=== PATIENT | female | born 1940 | race Caucasian/White ===

== ENCOUNTER → 2017-07-19 | Outpatient (CLI) | payer MEDICARE ==
--- NOTE | 2017-07-19 10:49 | US ---
EXAMINATION TYPE: US extremity nonvasc mass LT DATE OF EXAM: 07/19/2017 COMPARISON: NONE CLINICAL HISTORY: N83.7 Hematoma of Broad Ligament. Left lateral lower arm palpable area 2 weeks Left lower arm palpable area: 2.1 x 0.7 x 1.7cm superficial hypoechoic complex area with minimal vasc ularity and small focal hyperechoic area within measuring 0.7 x 0.4 x 0.9cm. Right arm for comparison: appears wnl IMPRESSION: 2.1 x 1.7 cm hypoechoic complex area overlying the palpable abnormality. Couldn't been t he basis of a hematoma, phlegmon or abscess. Neoplasm not excluded. Correlate clinically and follow-u p to resolution or obtain MRI on short-term basis.
== END | disposition home or self-care (01) ==
LOC: RADUSMAIN 10:01
PROVIDERS: ATTEND Internal Medicine Geriatric Medicine
DX: N83.7 Hematoma of broad ligament (principal)

== ENCOUNTER → 2021-07-22 | Outpatient (CLI) | payer MEDICARE ==
[2021-07-22 08:03] LABS: INR 0.9 (<1.2); Partial Thromboplastin Time 25.4 sec (22.0-30.0); Prothrombin Time 10.4 sec (9.0-12.0)
[2021-07-22 13:08] LABS: HCT 38.3 % (37.2-46.3); MCH 26.3 pg (27.0-32.0); MCHC 31.3 g/dL (32.0-37.0); Mean Platelet Volume 11.3 fL (9.5-12.2); NRBC Per 100 WBC 0 /100 WBCS (0.0-0.0); Platelet Count 302 X 10*3/uL (140-440); RBC 4.56 X 10*6/uL (4.10-5.20); RDW 15.5 % (11.5-14.5); WBC 7.42 X 10*3/uL (4.50-10.00)
[2021-07-22 13:28] LABS: African American GFR (CKD) 72.4 (60.0-200.0); Albumin 4.6 g/dL (3.8-4.9); Albumin/Globulin Ratio 1.68 (1.60-3.17); Anion Gap 15.3 mmol/L (10.00-18.00); BUN/Creat Ratio 20.45 Ratio (12.00-20.00); Blood Urea Nitrogen 18.1 mg/dL (9.0-27.0); Carbon Dioxide 26.7 mmol/L (20.0-27.5); Globulin 2.7 g/dL (1.6-3.3); Non-African American GFR(CKD) 62.5 (60.0-200.0); Potassium 3.3 mmol/L (3.5-5.5); Total Bilirubin 0.3 mg/dL (0.30-1.20); Total Protein 7.3 g/dL (6.2-8.2)
[2021-07-22 13:51] LABS: Appearance,Urine Cloudy (Clear); Bacteria,Urine 4+ /HPF (None Seen); Bilirubin,Urine Negative (Negative); Blood,Urine Trace (Negative); Color,Urine Yellow (Yellow); Ketones,Urine Trace mg/dL (Negative); Leukocyte Esterase,Urine Moderate (Negative); Nitrite,Urine Negative (Negative); Protein,Urine Trace (Negative); WBC,Urine 21-50 /HPF (0-5)
== END | disposition home or self-care (01) ==
LOC: LABPAT 07:01
PROVIDERS: ATTEND Orthopaedic Surgery
DX: Z01.812 Encounter for preprocedural laboratory examination (principal)
CPT/HCPCS: 36415; 80053; 81001; 85027; 85610; 85730; 87070

== ENCOUNTER 2021-08-03 07:38 | Day surgery (SDC) | payer MEDICARE ==
[2021-07-30 09:03] VITALS: BMI 30.3
[~2021-08-03 07:38] MED LIST: ACETAMINOPHEN TAB 500 MG TAB PO PRN; GABAPENTIN 300 MG CAP PO PRN; LIDOCAINE 1% (10MG/ML) FOR IV START INTRADERMA PRN; MELOXICAM 7.5 MG TAB PO PRN; ONDANSETRON 4 MG/2 ML VIAL IVP ONE; TRANEXAMIC ACID IN NACL,ISO-OS 1,000 MG in SALINE 1 100ML.BAG IVPB PRN
[2021-08-03] MEDS: LACTATED RINGERS 1,000 ML IV SCH (08:27)
[2021-08-03] MEDS ORDERED: DEXAMETHASONE SOD PHOSPHATE 4 MG/ML 1 ML VIAL IVP ONE (08:28)
[2021-08-03] MEDS ORDERED: fentaNYL (PF) 50 MCG/ML 2 ML AMP ONE (08:51)
[2021-08-03] MEDS ORDERED: LIDOCAINE 1% INJ 10MG/ML (20 ML MDV) ONE (08:51)
[2021-08-03] MEDS ORDERED: TRANEXAMIC ACID IN NACL,ISO-OS 1,000 MG/100 ML BAG ONE (08:51)
[2021-08-03] MEDS ORDERED: SUCCINYLCHOLINE CHLORIDE 100 MG/5 ML SYR IV ONE (08:51)
[2021-08-03] MEDS ORDERED: PROPOFOL 10 MG/ML 20 ML VIAL IV ONE (08:51)
[2021-08-03] MEDS ORDERED: ceFAZolin 1,000 MG in SODIUM CHLORIDE 0.9% 1,000 ML IRRIGATION ONE (08:54)
[2021-08-03] MEDS ORDERED: HYDROmorphone 0.5 MG/0.5 ML SYRINGE IVP PRN ×2 (08:55)
[2021-08-03] MEDS ORDERED: ONDANSETRON 4 MG/2 ML VIAL IVP PRN (08:55)
[2021-08-03] MEDS ORDERED: NALOXONE 0.4 MG/ML 1 ML VIAL IV PRN (08:55)
[2021-08-03] MEDS ORDERED: MAGNESIUM HYDROXIDE 2,400 MG/10 ML CUP PO PRN (08:55)
[2021-08-03] MEDS ORDERED: HYDROmorphone 0.2 MG/1 ML SYRINGE IVP PRN (08:55)
[2021-08-03] MEDS ORDERED: HYDROcodone/APAP 7.5-325MG 1 EACH TAB PO PRN ×2 (08:56)
[2021-08-03] MEDS ORDERED: ROPIVACAINE 5 MG/ML 30 ML VIAL MISCELLANE ONE ×2 (09:21→09:50)
--- NOTE | 2021-08-03 10:02 | P.OP ---
Date of Procedure: 08/03/21 Preoperative Diagnosis: Severe osteoarthritis right hip Postoperative Diagnosis: Severe osteoarthritis right hip Procedure(s) Performed: Right total hip arthroplasty with a direct anterior approach Implants: Sal [employer] Nephew Polarstem standard size 0 with a collar Sal [employer] Nephew R3, 3 hole hemispherical acetabular shell, 48 mm Sal [employer] Nephew Reflection 6.5 mm cancellus screw, 20 mm 2 Sal [employer] Nephew R3, XLPE 20 acetabular liner Sal & Nephew Oxinium femoral head 32 m, +0 All components were press-fit. The articulation is Oxinium on polyethylene. Anesthesia: GETA Surgeon: Kwesi Lim Carpenter Repairer #1: Michelle Murray Estimated Blood Loss (ml): 200 Pathology: other (Femoral head) Condition: stable Disposition: PACU Indications for Procedure: After failure of conservative treatment we discussed the surgical and nonsurgical treatment options at length. Patient wishes to proceed with a total hip arthroplasty with a direct anterior approach. Complications specific to this procedure were discussed at length, including but not limited to infection, leg length discrepancy, dislocation, nerve injury, and fracture. Covid-19 was also discussed at length with the patient, and they are aware of the current po licies and procedures. The patient was given the option of delaying surgery, but they elect to proceed knowing these risks. Patient is aware of all these complications and informed consent was obtained Operative Findings: The operative findings are consistent with severe osteoarthritis of the right hip Description of Procedure: Patient was seen and evaluated in the preoperative area and the consent was reviewed. The operative site was marked with a skin marker. The patient was then brought to the operating room and given preoperative antibiotics intravenously. 1 g of Tranexamic acid was also given intravenously. A general anesthetic was administered by the anesthesia department. The patient was then placed on the [place] table with the bony prominences well-padded. The hip area was then prepped with a ChloraPrep solution and draped in the usual sterile fashion. A universal timeout was then performed, which confirmed the patient's name, surgical site, ALLERGIES, and procedure being performed on the consent. Next the incision site was located at 1 cm distal and 2 cm lateral to the anterior superior iliac spine. The skin and subcutaneous tissues were sharply incised. Incision was carefully dissected down to the fascia overlying the tensor fascia ronen muscle. This fascia was then incised in line with the incision. Care was taken to stay laterally in order to avoid injuring the lateral femoral cutaneous nerve. Next, using blunt finger dissection, the tensor fascia ronen muscle was dissected off its investing fascia. The muscle was then carefully retracted laterally with a cobra retractor over the lateral neck of the femur. Next, the circumflex vessels were identified and cauterized using the AquaMantis device. The anterior hip capsule was then exposed. The capsule was then opened and an inverted T fashion. Cobra retractors were then placed intracapsularly. The retractors were maintained intracapsular throughout the procedure. The proximal femur was then visualized. Fluoroscopic x-rays were then taken in order to evaluate the preoperative leg lengths. A small amount of traction was placed on the leg. The femoral neck was then osteotomized at the appropriate level above the lesser trochanter. A small wedge of bone was then removed from the remaining femoral head. Next, using a corkscrew the femoral head was removed from the acetabulum. On gross visual inspection, the femoral head had complete loss of articular cartilage and multiple periarticular osteophytes. The femoral head was then measured. Attention was then turned to the acetabulum. The acetabulum was exposed and any remaining labrum was excised. Sequential reaming of the acetabulum was performed using fluoroscopic guidance until there was a good bed of bleeding cancellus bone. When the appropriate size was reached, a trial was then placed. The position and fit of the trial was checked with fluoroscopy. The trial was then removed. Then, using fluoroscopic guidance, the final implant was impacted at 20 of anteversion and 40 of abduction, and fully seated in the acetabulum. 2 screws were then placed in the acetabulum. Again fluoroscopy was used to check position of the screws. Next, the liner was then impacted, with a 20 elevated liner located in the anterior superior quadrant. Component locking was confirmed. Attention was then directed to the femur. With the aid of the [place] table, the femur was externally rotated to approximately 130, extended, and adducted under the opposite leg. A side hook was then placed under the proximal femur, and the side hook elevator was used to elevate the proximal femur while releasing the capsule. Retractors were then placed. A capsular release was performed, as well as a release of the conjoined tendon, which afforded excellent visualization of the proximal femur. Next, a box osteotome was used to lateralize the proximal femur. A merchandise marker was then used to locate the femoral canal. Sequential broaching was then performed with appropriate size which afforded excellent fixation in the proximal femur. A trial was then placed with appropriate head and neck, and the hip was gently reduced with the aid of the [place] table. Fluoroscopy was then used to check position of the components, as well as to ensure equal leg lengths. The hip was then gently dislocated and the trials were then removed. Final implants were then impacted and the hip was again reduced. Final fluoroscopic x-rays confirmed that the components were in anatomic position, as well as equal leg lengths. The hip was also taken through range of motion, and found to be stable. The hip was then copiously irrigated with antibiotic solution with pulsatile lavage. The hip was then irrigated with Irrisept solution. The soft tissues were then injected with a ropivacaine solution. A second dose of 1 g of Tranexamic acid was also given intravenously. The fascia was then closed with 2-0 strata fix suture. The subcutaneous tissue was closed with 3-0 Vicryl. The subcuticular tissue was closed with 3-0 strata fix suture. The skin was then closed with Exofin skin glue. After the glue and dried, and Optifoam silver impregnated dressing was applied. The patient was then transferred to the recovery room in stable condition. The news production assistant THERESA Mirza was required due to the complexity of surgery, and the need for skilled surgical instrument maker for positioning, draping, exposure, retraction, and closure of the wound.
[2021-08-03] MEDS: HYDROmorphone 0.5 MG/0.5 ML SYRINGE IVP PRN ×2 (10:32→11:06)
--- NOTE | 2021-08-03 11:22 | XR ---
Limited right hip HISTORY: Status post right hip arthroplasty Single frontal view of the right hip Patient is status post right hip arthroplasty, there is anatomic alignment. Lucencies present within the soft tissues. IMPRESSION: Orthopedic follow-up
--- NOTE | 2021-08-03 11:29 | XR ---
Fluoroscopy HISTORY: Anterior hip replacement 22 seconds fluoroscopy time supplied to the referring clinician. 3 intraoperative C-arm images docum ent the procedure. See dictated report from orthopedic surgery.
[2021-08-03] MEDS: SODIUM CHLORIDE 0.9% 1,000 ML IV SCH (12:07)
[2021-08-03] MEDS ORDERED: NON FORMULARY DRUG (Brimonidine Tartrate/Timolol [Combigan 0.2%-0.5% Eye Drops] 5 ML Ml) BOTH EYES SCH (12:30)
[2021-08-03] MEDS: CALCIUM CARBONATE 500 MG CHEWABLE PO SCH (13:17)
--- NOTE | 2021-08-03 14:08 | P.CONS ---
History of Present Illness - Reason for Consult Consult date: 08/03/21 - Chief Complaint Right hip pain - History of Present Illness 81 years old female with past medical history of hyperlipidemia, hypertension, glaucoma comes in for an elective right hip arthroplasty with Dr. Lim. Patient assessed postoperatively, denies any pain in her hip is able to mobilize her hip without any significant pain and stiffness. She is drowsy but is able to provide most of the history. Denies any chest pain or shortness of breath. Patient denies any previous history of heart disease. Vitals were reviewed the patient's afebrile pulse 63 respiratory rate 18 blood pressure 106/57 oxygenating at 92% on room air. No recent labs to compare ROS Constitutional: Denies chills, Denies fever, Denies lethargy, Denies malaise, Denies poor appetite, Denies weakness, Denies weight loss Eyes: denies decreased vision, denies diplopia, denies discharge, denies pain Ears: deny: decreased hearing Ears, nose, mouth and throat: Denies dental pain, Denies headache, Denies nasal discharge, Denies nose pain Cardiovascular: Denies chest pain, Denies decreased exercise tolerance, Denies edema, Denies high blood pressure, Denies irregular heart beat, Denies palpitations, Denies paroxysmal nocturnal dyspnea, Denies rapid heart beat, Denies shortness of breath Respiratory: Denies congestion, Denies cough, Denies cough with sputum, Denies dyspnea, Denies home oxygen, Denies wheezing Gastrointestinal: Denies abdominal pain, Denies change in bowel habits, Denies coffee ground emesis, Denies early satiety, Denies excessive gas, Denies heartburn, Denies hematemesis, Denies hematochezia, Denies loss of appetite, Denies nausea, Denies vomiting Genitourinary: Denies dysuria, Denies flank pain, Denies kidney stones, Denies menorrhagia, Denies urgency, Denies urinary frequency Musculoskeletal: endorses gait dysfunction, endorses limitation of motion, mild hip pain Denies morning stiffness, Denies muscle cramps Integumentary: Denies rash, Denies wounds, Denies brittle nails, Denies change in hair/nails, Denies darkening of skin Neurological: Denies balance difficulties, Denies change in speech, Denies double vision, Denies gait dysfunction, Denies loss of vision, Denies motor disturbance, Denies numbness, Denies paralysis, Denies paresthesias, Denies seizures Psychiatric: Denies anxiety, Denies depression Endocrine: Denies excessive sweating, Denies excessive thirst, Denies high blood sugars, Denies palpitations Hematologic/Lymphatic: Denies easy bruising, Denies lymphadenopathy Social history Nonsmoker nondrinker Family history Mother at 95 from old age Father of colon cancer at age of 75 3 brother and 2 sisters with no medical problem Son has diabetes, daughter gallstones no other significant medical history Physical exam - Constitutional General appearance: cooperative, no acute distress, appears stated age - EENT Eyes: anicteric sclerae, PERRLA, normal appearance ENT: hearing grossly normal - Neck Neck: no lymphadenopathy, normal ROM, no other, no rigidity, no stridor, no thyromegaly - Respiratory Respiratory: bilateral: CTA, negative: diminished, dullness, rales, rhonchi - Cardiovascular Rhythm: regular Heart sounds: normal: S1, S2 Abnormal Heart Sounds: 3/5 systolic murmur, no diastolic murmur, no rub, no S3 Gallop, no S4 Gallop, no click, no other - Gastrointestinal General gastrointestinal: normal bowel sounds, soft nontender - Integumentary Integumentary: no rash - Neurologic Neurologic: No sensory or motor deficit - Musculoskeletal Musculoskeletal: Surgical dressing in place no bruising no inflammation. No sign of infection noted - Psychiatric Psychiatric: A&O x's 3, appropriate affect Assessment and plan #1 Postoperative day 0 right hip arthroplasty anterior approach with Dr. Lim. Pain control per primary team. DVT prophylaxis with aspirin 325 by mouth twice a day. Incentive spirometry for pulmonary prophylaxis watch for aspiration. Watch for postoperative anemia. PTOT consult . #2 Hypertension hold hydrochlorothiazide. Continue Procardia at 60 by mouth daily #3 Hyperlipidemia continue Zocor at 40 mg by mouth daily #4.Glaucoma Continue brimonidine eyedrops from home #5 code status full code thank you for the consult and I'll be happy to assist in patient's medical nevi and she is in the hospital Past Medical History Past Medical History: Hyperlipidemia, Hypertension, Osteoarthritis (OA) History of Any Multi-Drug Resistant Organisms: None Reported Past Surgical History: Adenoidectomy, Back Surgery, Section, Joint Replacement, Tonsillectomy Additional Past Surgical History / Comment(s): back surgery x 3-screws, rods(rods later removed), jenn cataracts, total right hip anterior 08/03/21 Past Anesthesia/Blood Transfusion Reactions: No Reported Reaction Past Psychological History: No Psychological Hx Reported Smoking Status: Former smoker Past Alcohol Use History: Rare Additional Past Alcohol Use History / Comment(s): quit smoking 33 yrs ago, smoked for 20 yrs Past Drug Use History: None Reported - Past Family History Father Family Medical History: Cancer Medications and Allergies Home Medications Medication Instructions Recorded Confirmed Type Aspirin [[place] Aspirin EC] 81 mg PO HS 07/30/21 08/03/21 History Bimatoprost [Lum[place] .01% Ophth 1 drop BOTH EYES HS 07/30/21 08/03/21 History Soln] Brimonidine Tartrate/Timolol 1 drop BOTH EYES BID 07/30/21 08/03/21 History [Combigan 0.2%-0.5% Eye Drops] Calcium Carbonate [Calcium] 1,200 mg PO DAILY 07/30/21 08/03/21 History Loratadine-Pseudoeph 10-240 mg 1 tab PO DAILY 07/30/21 08/03/21 History [Claritin-D 24 Hour] NIFEdipine XL [Procardia XL] 60 mg PO DAILY 07/30/21 08/03/21 History Potassium Gluconate [Potassium 99 mg PO DAILY 07/30/21 08/03/21 History Gluconate ER] Psyllium Husk (with Sugar) 0 gm PO DAILY 07/30/21 08/03/21 History [Metamucil Powder] Simvastatin [Zocor] 40 mg PO DAILY 07/30/21 08/03/21 History hydroCHLOROthiazide [Hydrodiuril] 25 mg PO HS 07/30/21 08/03/21 History Aspirin 325 mg PO BID #60 tab 08/03/21 Rx HYDROcodone/APAP 7.5-325MG [[place] 1 - 2 tab PO Q6H PRN #32 tab 08/03/21 Rx 7.5-325] Ondansetron Odt [Zofran Odt] 1 tab PO Q8HR PRN #10 tab 08/03/21 Rx Sennosides [Senokot] 2 tab PO DAILY PRN #60 tablet 08/03/21 Rx Allergies Allergy/AdvReac Type Severity Reaction Status Date / Time acetaminophen [From Vicodin] Allergy Nausea & Verified 08/03/21 08:34 Vomiting & Diarrhea hydrocodone [From Vicodin] Allergy Nausea & Verified 08/03/21 08:34 Vomiting & Diarrhea Physical Exam Vitals: Vital Signs Temp Pulse Pulse Resp BP Pulse Ox 08/03/21 11:16 63 18 106/57 92 L 08/03/21 11:13 66 18 106/55 99 08/03/21 11:01 68 18 104/55 99 08/03/21 10:46 70 18 108/58 100 08/03/21 10:31 77 18 113/55 100 08/03/21 10:23 97 F L 86 16 115/59 100 08/03/21 08:04 97.5 F L 64 18 130/66 97 Intake and Output 08/02/21 08/03/21 08/03/21 22:59 06:59 14:59 Intake Total 951 Output Total 200 Balance 751 Intake: IV 951 Output: Estimated Blood Loss 200 Other: Weight 66.7 kg Results CBC & Chem 7: 08/03/21 08:10
[2021-08-03] MEDS ORDERED: LATANOPROST 0.005% OPHTH DROPS 2.5 ML BTL BOTH EYES SCH (21:00)
[2021-08-03] MEDS ORDERED: SENNOSIDES-DOCUSATE SODIUM 1 EACH TAB PO SCH (21:00)
[2021-08-03] MEDS: ASPIRIN 325 MG TAB PO SCH (21:27)
[2021-08-03] MEDS: TIMOLOL 0.5% OPHTH DROPS 5 ML BTL BOTH EYES SCH (21:28)
[2021-08-03] MEDS: BRIMONIDINE TARTRATE 0.2% DROPS 5 ML BTL BOTH EYES SCH (21:28)
[2021-08-04] MEDS: SODIUM CHLORIDE 0.9% 1,000 ML IV SCH ×2 (00:37→10:00)
[2021-08-04] MEDS: LACTATED RINGERS 1,000 ML IV SCH (06:49)
[2021-08-04 07:49] VITALS: RESP 14
[2021-08-04 08:56] LABS: Basophils # (A) 0.01 X 10*3/uL (0.00-0.10); Basophils % (A) 0.1 %; Eosinophils # (A) 0.01 X 10*3/uL (0.04-0.35); Eosinophils % (A) 0.1 %; HCT 31.8 % (37.2-46.3); HGB 10.1 g/dL (12.0-15.0); Immature Grans, Automated 0.4 %; Lymphocytes # (A) 1.19 X 10*3/uL (0.90-5.00); MCH 26.6 pg (27.0-32.0); MCHC 31.8 g/dL (32.0-37.0); MCV 83.9 fL (80.0-97.0); Mean Platelet Volume 11.2 fL (9.5-12.2); Monocytes # (A) 1.02 X 10*3/uL (0.20-1.00); Monocytes % (A) 10.3 %; NRBC Per 100 WBC 0 /100 WBCS (0.0-0.0); Neutrophils # (A) 7.66 X 10*3/uL (1.80-7.70); Neutrophils % (A) 77.1 %; Platelet Count 222 X 10*3/uL (140-440); RBC 3.79 X 10*6/uL (4.10-5.20); RDW 15.6 % (11.5-14.5); WBC 9.93 X 10*3/uL (4.50-10.00)
[2021-08-04] MEDS ORDERED: LORATADINE-PSEUDOEPH 5-120 MG 1 EACH TAB.ER.12H PO SCH (09:00)
[2021-08-04] MEDS ORDERED: NON FORMULARY DRUG (Potassium Gluconate [Potassium Gluconate Er] 99 MG Tablet) PO SCH (09:00)
[2021-08-04] MEDS ORDERED: ATORVASTATIN 20 MG TAB PO SCH (09:00)
--- NOTE | 2021-08-04 09:02 | P.DS ---
Providers Expected date of discharge: 08/04/21 Attending physician: Kwesi Lim Consults: 08/03/21 08:55 Consult Physician Routine Consulting Provider: Rishabh Hendrickson Reason/Comments: medical management Do you want consulting provider notified?: Yes Primary care physician: Rishabh Hendrickson - Discharge Diagnosis(es) (1) Osteoarthritis of right hip Current Visit: Yes Status: Acute (2) S/P total right hip arthroplasty Current Visit: Yes Status: Acute Hospital Course: This is a 81-year-old female with known history of degenerative arthritis of the right hip. The patient presented for evaluation as an outpatient. After discussion and consideration patient elects to proceed with total hip arthroplasty. The patient is seen preoperatively by Dr. Lim and medically cleared for surgery by their primary care physician. Patient is admitted to [facility] on 08/03/2021 for total hip arthroplasty. The procedure is performed without complication or sequelae. The patient is doing well postoperatively. Labs and vital signs are stable on day of discharge. On day of discharge patient's hip incision is healing well. There is minimal erythema. There is no drainage noted at this time. There is minimal soft t issue swelling to the hip and thigh. Patient has full foot and ankle motion without difficulty or pain. Calf is soft and nontender to palpation. Neurovascular status to the right lower extremity is intact. Patient is discharged home in good condition. Please see med rec for accurate list of home medications. Plan - Discharge Summary Discharge Rx Participant: No New Discharge Prescriptions: New Sennosides [Senokot] 2 tab PO DAILY PRN #60 tablet PRN Reason: Constipation Ondansetron Odt [Zofran Odt] 1 tab PO Q8HR PRN #10 tab PRN Reason: Nausea Aspirin 325 mg PO BID #60 tab HYDROcodone/APAP 7.5-325MG [[place] 7.5-325] 1 - 2 tab PO Q6H PRN #32 tab PRN Reason: Pain No Action Simvastatin [Zocor] 40 mg PO DAILY Aspirin [[place] Aspirin EC] 81 mg PO HS hydroCHLOROthiazide [Hydrodiuril] 25 mg PO HS Bimatoprost [[place]um[place] .01% Ophth Soln] 1 drop BOTH EYES HS Loratadine-Pseudoeph 10-240 mg [Claritin-D 24 Hour] 1 tab PO DAILY Brimonidine Tartrate/Timolol [Combigan 0.2%-0.5% Eye Drops] 1 drop BOTH EYES BID NIFEdipine XL [Procardia XL] 60 mg PO DAILY Potassium Gluconate [Potassium Gluconate ER] 99 mg PO DAILY Calcium Carbonate [Calcium] 1,200 mg PO DAILY Psyllium Husk (with Sugar) [Metamucil Powder] 0 gm PO DAILY Discharge Medication List Aspirin [[place] Aspirin EC] 81 mg PO HS 07/30/21 [History] Bimatoprost [[place]um[place] .01% Ophth Soln] 1 drop BOTH EYES HS 07/30/21 [History] Brimonidine Tartrate/Timolol [[place] 0.2%-0.5% Eye Drops] 1 drop BOTH EYES BID 07/30/21 [History] Calcium Carbonate [Calcium] 1,200 mg PO DAILY 07/30/21 [History] Loratadine-Pseudoeph 10-240 mg [Claritin-D 24 Hour] 1 tab PO DAILY 07/30/21 [History] NIFEdipine XL [Procardia XL] 60 mg PO DAILY 07/30/21 [History] Potassium Gluconate [Potassium Gluconate ER] 99 mg PO DAILY 07/30/21 [History] Psyllium Husk (with Sugar) [Metamucil Powder] 0 gm PO DAILY 07/30/21 [History] Simvastatin [Zocor] 40 mg PO DAILY 07/30/21 [History] hydroCHLOROthiazide [Hydrodiuril] 25 mg PO HS 07/30/21 [History] Aspirin 325 mg PO BID #60 tab 08/03/21 [Rx] HYDROcodone/APAP 7.5-325MG [[place] 7.5-325] 1 - 2 tab PO Q6H PRN #32 tab 08/03/21 [Rx] Ondansetron Odt [Zofran Odt] 1 tab PO Q8HR PRN #10 tab 08/03/21 [Rx] Sennosides [Senokot] 2 tab PO DAILY PRN #60 tablet 08/03/21 [Rx] Follow up Appointment(s)/Referral(s): [facility], [NON-STAFF] - ([facility] will call you to schedule your in home physical therapy visits. ) Kwesi Lim DO [Doctor of Osteopathic Medicine] - 08/17/21 9:00 am (With Michelle) Activity/Diet/Wound Care/Special Instructions: Weightbearing as tolerated with walker. Leave dressing intact. Dressing may be removed by home care nurse or by patient in 7 days. Then change dressing twice daily until follow up. May shower with initial dressing intact and after removal. If dressing become saturated, please remove. Please take aspirin 325mg twice daily for 30 days to prevent blood clots. Recommend use of compression stockings daily until follow up to help prevent swelling and blood clots. May remove at night before sleeping. Please follow-up with [facility] in 2 weeks and call with any questions or concerns, . Discharge Disposition: HOME WITH HOME HEALTH SERVICES
[2021-08-04 09:55] VITALS: BP 132/63; PULSE 92; TEMP 98.5
[2021-08-04] MEDS: BRIMONIDINE TARTRATE 0.2% DROPS 5 ML BTL BOTH EYES SCH (09:58)
[2021-08-04] MEDS: TIMOLOL 0.5% OPHTH DROPS 5 ML BTL BOTH EYES SCH (09:58)
[2021-08-04] MEDS: CALCIUM CARBONATE 500 MG CHEWABLE PO SCH (10:00)
[2021-08-04] MEDS: ASPIRIN 325 MG TAB PO SCH (10:01)
== END 2021-08-04 11:38 | disposition home health service (06) ==
LOC: OR 07:38 → 4SSUR 10:23 → OR 08-04 11:38
PROVIDERS: ATTEND Orthopaedic Surgery
DX: M16.11 Unilateral primary osteoarthritis, right hip (principal)
CPT/HCPCS: 27130; 97161; 97530; 97535; 97165; 86900; 86901; 84132; 85025; 86850; 88300; 73501; C1776; J1100; J0690 ×3; J2405; J2001; J3010; J2795; J0330; J2704; J1170

== ENCOUNTER → 2022-01-26 | Outpatient (CLI) | payer MEDICARE ==
--- NOTE | 2022-01-29 07:32 | US ---
EXAMINATION TYPE: US extremity nonvasc mass LT DATE OF EXAM: 01/27/2022 COMPARISON: NONE CLINICAL HISTORY: R22.32 SWELLIN, MASS LUMP LT UPPER LIMB. left upper arm/shoulder palpable lump for many years Palpable mass seen left upper arm/shoulder area = 8.9 x 3.4 x 5.5cm IMPRESSION: Probable lipoma however this can be confirmed with MRI.
== END | disposition home or self-care (01) ==
LOC: RADUSWWP 21:54
PROVIDERS: ATTEND Surgery Plastic and Reconstructive Surgery
DX: R22.32 Localized swelling, mass and lump, left upper limb (principal)

== ENCOUNTER 2022-03-12 06:15 | Day surgery (SDC) | payer MEDICARE ==
[~2022-03-12 06:15] MED LIST changes: -ACETAMINOPHEN TAB 500 MG TAB PO PRN; +DEXAMETHASONE SOD PHOSPHATE 4 MG/ML 1 ML VIAL IV ONE; -GABAPENTIN 300 MG CAP PO PRN; +HEPARIN SODIUM,PORCINE/PF 5,000 UNIT/0.5 ML SYRINGE SQ PRN; +LACTATED RINGERS 1,000 ML IV SCH; -LIDOCAINE 1% (10MG/ML) FOR IV START INTRADERMA PRN; -MELOXICAM 7.5 MG TAB PO PRN; +MIDAZOLAM 2 MG/2 ML VIAL IV PRN; +Pre Op ABX Message 1 EACH MISC MISCELLANE ONE; -TRANEXAMIC ACID IN NACL,ISO-OS 1,000 MG in SALINE 1 100ML.BAG IVPB PRN
[2022-03-12] MEDS ORDERED: ACETAMINOPHEN TAB 500 MG TAB PO STA (06:38)
--- NOTE | 2022-03-12 06:38 | P.GSHP ---
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 She now who presents for definitive excision. PAST MEDICAL HISTORY: Please see list. PAST SURGICAL HISTORY: Please see list. MEDICATIONS: Please see list. ALLERGIES: Please see list. SOCIAL HISTORY: No illicit drug use FAMILY HISTORY: No reports of Crohn disease or ulcerative colitis. REVIEW OF ORGAN SYSTEMS: CONSTITUTIONAL: No reports of fevers or chills. GI: Denies any blood in stools or constipation. PHYSICAL EXAM: VITAL SIGNS: Stable Musculoskeletal: No clubbing cyanosis GENERAL: Well developed and in no acute distress. Pleasant. HEENT: No sclera icterus. Extraocular movements grossly intact. Moist buccal mucosa. Head is atraumatic, normocephalic. Hears conversational speech. No nasal drainage. NECK: Supple without lymphadenopathy. No JV distention. CHEST: Non-labored respirations and equal bilateral excursions. CARDIOVASCULAR: Regular rate and rhythm. Palpable 2+ radial pulses. ABDOMEN: Soft. Non-tender. Nondistended. NEUROLOGIC: No focal or lateralizing signs. PSYCH: Appropriate affect. Alert and oriented to person, place and time. SKIN: Left arm tumor, 10 cm ASSESSMENT: 1. 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 Will proceed of excision of left arm tumor. Benefits and risks described. Past Medical History Past Medical History: Atrial Fibrillation, Hyperlipidemia, Hypertension Additional Past Medical History / Comment(s): glaucoma, arthritis in hands History of Any Multi-Drug Resistant Organisms: None Reported Past Surgical History: Adenoidectomy, Back Surgery, Section, Joint Replacement, Tonsillectomy Additional Past Surgical History / Comment(s): back surgery x 3-screws, rods(rods later removed), jenn cataracts, total right hip anterior 08/03/21 Past Anesthesia/Blood Transfusion Reactions: No Reported Reaction Smoking Status: Former smoker - Past Family History Father Additional Family Medical History / Comment(s): arthritis Mother Additional Family Medical History / Comment(s): arthritis Medications and Allergies Home Medications Medication Instructions Recorded Confirmed Type Bimatoprost [Lumigan 0.01% Ophth 1 drop BOTH EYES HS 07/30/21 03/11/22 History Soln] Brimonidine Tartrate/Timolol 1 drop BOTH EYES BID 07/30/21 03/11/22 History [Combigan 0.2%-0.5% Eye Drops] Calcium Carbonate [Calcium] 1,200 mg PO DAILY 07/30/21 03/11/22 History Loratadine-Pseudoeph 10-240 mg 1 tab PO DAILY PRN 07/30/21 03/11/22 History [Claritin-D 24 Hour] Potassium Gluconate [Potassium 99 mg PO DAILY 07/30/21 03/11/22 History Gluconate ER] Psyllium Husk (with Sugar) 0 gm PO DAILY 07/30/21 03/11/22 History [Metamucil Powder] Simvastatin [Zocor] 40 mg PO DAILY 07/30/21 03/11/22 History hydroCHLOROthiazide [Hydrodiuril] 25 mg PO HS #0 08/04/21 03/11/22 Rx Aspirin 81 mg PO DAILY 03/11/22 03/11/22 History Metoprolol Tartrate 25 mg PO HS 03/11/22 03/11/22 History Allergies Allergy/AdvReac Type Severity Reaction Status Date / Time acetaminophen [From Vicodin] Allergy Nausea & Verified 03/12/22 06:32 Vomiting & Diarrhea hydrocodone [From Vicodin] Allergy Nausea & Verified 03/12/22 06:32 Vomiting & Diarrhea
[2022-03-12] MEDS ORDERED: fentaNYL (PF) 50 MCG/ML 2 ML AMP IV PRN (07:00)
[2022-03-12] MEDS ORDERED: LIDOCAINE 2% INJ 20 MG/ML (2 ML VIAL) ONE (07:25)
[2022-03-12] MEDS ORDERED: MIDAZOLAM 2 MG/2 ML VIAL ONE (07:25)
[2022-03-12] MEDS ORDERED: PROPOFOL 10 MG/ML 20 ML VIAL IV ONE (07:25)
[2022-03-12] MEDS ORDERED: ePHEDrine 50 MG/ML 1 ML VIAL ONE (07:25)
[2022-03-12] MEDS ORDERED: WATER FOR INJECTION, STERILE 10 ML VIAL IV ONE (07:25)
[2022-03-12] MEDS ORDERED: fentaNYL (PF) 50 MCG/ML 2 ML AMP ONE (07:25)
[2022-03-12 07:41] LABS: Albumin 4.4 g/dL (3.5-5.0); Calcium 9.4 mg/dL (8.4-10.2); Potassium 3.6 mmol/L (3.5-5.1); Total Bilirubin 0.5 mg/dL (0.2-1.3)
[2022-03-12] MEDS ORDERED: LIDOCAINE 1%-EPI 1:100,000 20 ML VIAL SQ ONE (07:55)
--- NOTE | 2022-03-12 08:54 | P.OP ---
Date of Procedure: 03/12/22 Description of Procedure: SURGEON: KENZIE MARIE MD FAX MACHINE OPERATOR: NONE. PREOPERATIVE DIAGNOSES: 1. Left upper arm tumor 2. Hypertensive heart disease 3. Obesity due to excess calories, BMI 31.0 4. Hyperlipidemia 5. Lipoma 6. Atrial fibrillation POSTOPERATIVE DIAGNOSES: 1. 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 Hypertensive heart disease 3. Obesity due to excess calories, BMI 31.0 4. Hyperlipidemia 5. Lipoma 6. Atrial fibrillation OPERATION: 1. Excision of intramuscular upper arm tumor, 15 cm x 12 cm 2. Complex closure of left upper arm incision, 15 cm. ANESTHESIA: Gen. with local anesthetic ESTIMATED BLOOD LOSS: 5 mL. SPECIMENS REMOVED: 1. Left upper arm intramuscular tumor COMPLICATIONS: None. FINDINGS: 1. Left upper arm intramuscular tumor, 15 x 12 cm INDICATIONS: The patient is a 81-year-old female who presents with left upper arm tumor. Surgical options, including excision was discussed. Benefits and risks were described. Informed consent was obtained. DESCRIPTION OF PROCEDURE: Patient was brought into the operating room. After general anesthetic, she was positioned supine with elevation of the left chest wall and shoulder. The left chest wall and arm including shoulder was prepped and draped in standard sterile fashion using ChloraPrep. A timeout protocol was confirmed with the surgical team regarding patient's name including procedures to be performed. Preoperative medications was administered. Next, a local field block was administered. The left upper arm mass was measured using a ruler with borders marked with indelible marker 15 cm length x 12 cm width. A longitudinal incision 15 cm incision was made into the dermis. The mass was palpated within the deltoid deltoid muscle which was incised of the fascia . Blunt circumferential dissection was performed with delivery evagination of a large circumferential smooth intramuscular lipoma, over 10 cm. Hemostasis was checked with electrocautery. The wound was closed in multiple layers including with 3-0 Vicryl for fascia. 0 Vicryl for the deep subcutaneous tissue. The skin was closed using 3-0 Monocryl. The skin was cleansed. Exofin tape was placed as a fourth layer. Optifoam dressing was placed. At the end of the procedure, needle, sponge, and instrument count had been verified correct by the pipe testing technician. The patient was taken to the postanesthesia care unit in stable condition. Plan - Discharge Summary Discharge Rx Participant: No New Discharge Prescriptions: New Acetaminophen Tab [Tylenol Tab] 1,000 mg PO Q6HR PRN #30 tablet PRN Reason: Pain Continue Simvastatin [Zocor] 40 mg PO DAILY Bimatoprost [Lumigan 0.01% Ophth Soln] 1 drop BOTH EYES HS Loratadine-Pseudoeph 10-240 mg [Claritin-D 24 Hour] 1 tab PO DAILY PRN PRN Reason: Allergy Symptoms Brimonidine Tartrate/Timolol [Combigan 0.2%-0.5% Eye Drops] 1 drop BOTH EYES BID Potassium Gluconate [Potassium Gluconate ER] 99 mg PO DAILY Calcium Carbonate [Calcium] 1,200 mg PO DAILY Psyllium Husk (with Sugar) [Metamucil Powder] 0 gm PO DAILY hydroCHLOROthiazide [Hydrodiuril] 25 mg PO HS #0 Aspirin 81 mg PO DAILY Metoprolol Tartrate 25 mg PO HS Discharge Medication List Bimatoprost [Lumigan 0.01% Ophth Soln] 1 drop BOTH EYES HS 07/30/21 [History] Brimonidine Tartrate/Timolol [Combigan 0.2%-0.5% Eye Drops] 1 drop BOTH EYES BID 07/30/21 [History] Calcium Carbonate [Calcium] 1,200 mg PO DAILY 07/30/21 [History] Loratadine-Pseudoeph 10-240 mg [Claritin-D 24 Hour] 1 tab PO DAILY PRN 07/30/21 [History] Potassium Gluconate [Potassium Gluconate ER] 99 mg PO DAILY 07/30/21 [History] Psyllium Husk (with Sugar) [Metamucil Powder] 0 gm PO DAILY 07/30/21 [History] Simvastatin [Zocor] 40 mg PO DAILY 07/30/21 [History] hydroCHLOROthiazide [Hydrodiuril] 25 mg PO HS #0 08/04/21 [Rx] Aspirin 81 mg PO DAILY 03/11/22 [History] Metoprolol Tartrate 25 mg PO HS 03/11/22 [History] Acetaminophen Tab [Tylenol Tab] 1,000 mg PO Q6HR PRN #30 tablet 03/12/22 [Rx] Follow up Appointment(s)/Referral(s): Kenzie Marie MD [STAFF PHYSICIAN] - 03/16/22 Patient Instructions/Handouts: Lipoma (ED), Soft Tissue Mass (ED), Lipoma Removal (DC) Activity/Diet/Wound Care/Special Instructions: DO NOT REMOVE DRESSING May shower. No bath tub soaks for two weeks until Nov 4th Diet as tolerated. Use Tylenol and ibuprofen or Aleve scheduled for the next 24-48 hours for best pain relief. Use ice along incisions for today to prevent swelling. Discharge Disposition: HOME SELF-CARE
[2022-03-12 08:55] VITALS: TEMP 98.2
[2022-03-12 09:40] VITALS: PULSE 62; RESP 16
[2022-03-12 09:58] VITALS: BP 147/69
== END 2022-03-12 10:03 | disposition home or self-care (01) ==
LOC: OR 06:15
PROVIDERS: ATTEND Surgery Plastic and Reconstructive Surgery
DX: D17.22 Benign lipomatous neoplasm of skin and subcutaneous tissue of left arm (principal); I11.9 Hypertensive heart disease without heart failure; E78.5 Hyperlipidemia, unspecified; I48.91 Unspecified atrial fibrillation; E66.09 Other obesity due to excess calories; Z68.31 Body mass index [BMI] 31.0-31.9, adult; Z98.41 Cataract extraction status, right eye; Z98.42 Cataract extraction status, left eye; Z87.891 Personal history of nicotine dependence; Z82.61 Family history of arthritis; Z79.899 Other long term (current) drug therapy
CPT/HCPCS: 88304; 80053; 13121; 13122; 24073; J2250; J1100; J0690; J2405; J3010; J2704; J1644; J2001